=== PATIENT | female | born 1995 | race Hispanic/Latino ===

== ENCOUNTER 2018-02-18 16:42 | Emergency (ER) | payer OTHER ==
[~2018-02-18] VITALS: Ht 162.6 cm; Wt 122.5 kg
[2018-02-18] MEDS ORDERED: IBUPROFEN 600 MG TAB ONE (16:55)
[2018-02-18] MEDS ORDERED: IBUPROFEN 600 MG TAB PO STA (17:02)
[2018-02-18 17:24] LABS: BILIRUBIN,URINE 1+ (NEGATIVE); CLARITY,URINE CLEAR (CLEAR); COLOR,URINE ORANGE (YELLOW); KETONES,URINE TRACE (NEGATIVE); LEUKOCYTE ESTERASE ,URINE NEGATIVE (NEGATIVE); NITRITE,URINE NEGATIVE (NEGATIVE); PROTEIN,URINE DIPSTICK 2+ (NEGATIVE); URINE UROBILINOGEN 0.2 mg/dL (0.2 - 1)
[2018-02-18 17:25] LABS: INFLUENZAE A&B ANTIGEN (RAPID) NEGATIVE (NEGATIVE); STREPTOCOCCUS GRP A ANTIGEN POSITIVE (NEGATIVE)
[2018-02-18 17:33] LABS: BACTERIA,URINE FEW /HPF; EPITHELIAL CELLS,URINE MODERATE /LPF; MUCUS,URINE MODERATE (RARE); WBC,URINE (MAN) 0-5 /HPF (0-5)
[2018-02-18 18:06] VITALS: BP 117/75
== END 2018-02-18 18:10 | disposition home or self-care (01) ==
LOC: ER 16:42
DX: J00 Acute nasopharyngitis [common cold] (principal); M79.1 Myalgia; R50.9 Fever, unspecified
CPT/HCPCS: 81001; 83518; 87400; 99283